=== PATIENT | male | born 1980 | race American Indian/Alaskan Native ===

== ENCOUNTER 2018-06-03 14:49 | Emergency (ER) | payer OTHER ==
--- NOTE | 2018-06-03 23:34 | Emergency Department Report ---
ED Male HPI - General Chief complaint: Urogenital-Male Stated complaint: HAVING A DISCHARGE Time Seen by Provider: 06/03/18 23:26 Source: patient Mode of arrival: Ambulatory Limitations: No Limitations - History of Present Illness Initial comments: 38-year-old female states he's having discharge from his penis. Patient reports that this is been going on for 1 day. He admits to burning when he voids. Denies any nausea vomiting no abdominal pain no fever no chills. He is sexually active with women unprotected 2 partners in the last 6 months. Patient has a past medical history diabetes hypertension. MD Complaint: penile discharge -: days(s) (1) Location: penis Radiation: none Severity: mild Quality: burning Consistency: intermittent Worsens with: urination discharge - Related Data Sexually active: Yes (women 2 partners and unprotected last 6 months) Allergies Allergy/AdvReac Type Severity Reaction Status Date / Time No Known Allergies Allergy Unverified 06/03/18 15:05 ED Review of Systems ROS: Stated complaint: HAVING A DISCHARGE Other details as noted in HPI Genitourinary: dysuria, discharge ED Past Medical Hx - Past Medical History Previous Medical History?: Yes Hx Diabetes: Yes - Surgical History Past Surgical History?: No - Social History Smoking Status: Current Every Day Smoker Substance Use Type: None ED Physical Exam - General Limitations: No Limitations - exam: Present: circumcision. Absent: testicular tenderness, urethral discharge, scrotal swelling External exam: Present: normal external exam - Neurological Exam Neurological exam: Present: alert, oriented X3 - Psychiatric Psychiatric exam: Present: normal affect, normal mood - Skin Skin exam: Present: warm, dry, intact, normal color. Absent: rash ED Course Vital Signs 06/03/18 15:03 Temperature 98.3 F Pulse Rate 79 Respiratory 16 Rate Blood Pressure 164/100 O2 Sat by Pulse 98 Oximetry ED Medical Decision Making - Medical Decision Making Patient has been evaluated by this provider fast track. Gonorrhea and Chlamydia cultures been sent out Urinalysis ordered Ceftriaxone 250 mg IM, azithromycin 1000 mg by mouth Discussed patient that he is putting himself at risk for not being protected during intercourse. Patient urinalysis showed greater than 500 of glucose. [id number] testing for blood sugar shows it was 384. Patient is currently taking metformin and Lantus 20 units daily at bedtime. Patient has not taken his Lantus for tonight. Patient denies any signs or symptoms of high hyperglycemia no increased urination no increased thirsty. Instructed patient to go home and his metformin and his Lantus as prescribed. Discussed with patient to recheck his blood sugar in the morning if it elevated to call his primary care provider. Patient verbalizes understanding Critical care attestation.: If time is entered above; I have spent that time in minutes in the direct care of this critically ill patient, excluding procedure time. ED Disposition Clinical Impression: Concern about STD in male without diagnosis, Abnormal penile discharge Disposition: DC-01 TO HOME OR SELFCARE Is pt being admited?: No Does the pt Need Aspirin: No Condition: Stable Instructions: Sexually Transmitted Diseases (ED), Safe Sex (ED) Additional Instructions: Please inform your partners that you've been treated for STDs I recommend following up with the health department to have full STD workup which will include HIV HSV syphilis hepatitis B hepatitis C. These recheck her blood sugar in the morning after taking your prescribed anti-glycemic medication. If it's still elevated please contact your primary care provider. Referrals: PRIMARY CARE, [Primary Care Provider] - 3-5 Days [facility] [Outside] - 3-5 Days [facility] [Outside] - 3-5 Days [facility] [Outside] - 3-5 Days [facility] [Outside] - 3-5 Days Forms: Work/School Release Form(ED)
[2018-06-03] MEDS ORDERED: ROCEPHIN IM ONE (23:35)
[2018-06-03] MEDS ORDERED: ZITHROMAX PO ONE (23:35)
[2018-06-03] MEDS ORDERED: XYLOCAINE 1% MPF 5 mL INFILTRATI ONE (23:35)
[2018-06-04 00:24] LABS: Bilirubin,Urine NEG (Negative); Blood,Urine NEG (Negative); Color,Urine Yellow (Yellow); Mucus,Urine FEW /HPF; Protein,Urine <15 mg/dL mg/dL (Negative); Urobilinogen,Urine < 2.0 mg/dL (<2.0)
[2018-06-04 02:41] VITALS: BP 134/76
== END 2018-06-04 01:45 | disposition home or self-care (01) ==
LOC: ED 14:49
DX: R36.9 Urethral discharge, unspecified (principal); E11.9 Type 2 diabetes mellitus without complications; F17.200 Nicotine dependence, unspecified, uncomplicated
CPT/HCPCS: 81001; 82962; 87591; 96372; 99283; J0696

== ENCOUNTER 2021-08-16 14:20 | Emergency (ER) | payer OTHER ==
[2021-08-16 14:54] VITALS: BP 134/78
[2021-08-16] MEDS ORDERED: LIDOCAINE-MPF (1%) 10 MG/1 ML VIAL 5 ML INFILTRATI ONE (15:10)
--- NOTE | 2021-08-16 15:15 | Emergency Department Report ---
ED Male HPI - General Chief complaint: Urogenital-Male Stated complaint: PENILE DISCHARGE Time Seen by Provider: 08/16/21 15:06 Source: patient Mode of arrival: Ambulatory Limitations: No Limitations - History of Present Illness Initial comments: Patient is a 41-year-old male presents emergency room with complaints of clear penile discharge that began 2 days ago. He has associated dysuria. He states he was sexually active with a new sexual partner and did not use protection. He denies any fever, nausea, vomiting, diarrhea, abdominal pain, pain or swelling in the testicles, urinary retention, hematuria. Past medical history of diabetes. No allergies to medications. He states he is concerned for STDs. - Related Data Previous Rx's Medication Instructions Recorded Last Taken Type Doxycycline Hyclate [Doxycycline 100 mg PO BID 7 Days #14 tab 08/16/21 Unknown Rx Hyclate TAB] Allergies Allergy/AdvReac Type Severity Reaction Status Date / Time No Known Allergies Allergy Verified 08/16/21 14:55 ED Review of Systems ROS: Stated complaint: PENILE DISCHARGE Other details as noted in HPI Comment: All other systems reviewed and negative ED Past Medical Hx - Past Medical History Previous Medical History?: Yes Hx Diabetes: Yes - Social History Smoking Status: Never Smoker - Medications Home Medications: Home Medications Medication Instructions Recorded Confirmed Last Taken Type Doxycycline Hyclate [Doxycycline 100 mg PO BID 7 Days #14 tab 08/16/21 Unknown Rx Hyclate TAB] ED Physical Exam - General Limitations: No Limitations General appearance: alert, in no apparent distress - Head Head exam: Present: atraumatic, normocephalic - Eye Eye exam: Present: normal appearance - ENT ENT exam: Present: mucous membranes moist - Respiratory Respiratory exam: Absent: respiratory distress, accessory muscle use - GI/Abdominal GI/Abdominal exam: Present: soft. Absent: distended, tenderness, guarding, rebound, rigid - Neurological Exam Neurological exam: Present: alert, oriented X3 - Psychiatric Psychiatric exam: Present: normal affect, normal mood - Skin Skin exam: Present: warm, dry, intact ED Course Vital Signs 08/16/21 14:54 Temperature 98.6 F Pulse Rate 84 Respiratory 16 Rate Blood Pressure 134/78 [Left] O2 Sat by Pulse 97 Oximetry ED Medical Decision Making - Medical Decision Making Patient is a 41-year-old male presents emergency room with complaints of clear penile discharge that began 2 days ago. He has associated dysuria. He states he was sexually active with a new sexual partner and did not use protection. He denies any fever, nausea, vomiting, diarrhea, abdominal pain, pain or swelling in the testicles, urinary retention, hematuria. Past medical history of diabetes. No allergies to medications. He states he is concerned for STDs. Vitals are normal. Patient symptoms likely consistent with an STD. Patient has no testicular pain and denies any swelling, less likely to have epididymitis, orchitis, torsion. Patient given ceftriaxone while in the emergency department and given prescription for doxycycline. Advised patient Please take medication as prescribed. Please have any partner tested and treated as well. Avoid sexual intercourse. Please follow-up with a clinic or the health department in order to have a full STD panel. Return to emergency room for any new or worsening symptoms. Critical care attestation.: If time is entered above; I have spent that time in minutes in the direct care of this critically ill patient, excluding procedure time. ED Disposition Clinical Impression: Penile discharge, Dysuria, Unprotected sexual intercourse Disposition: 01 HOME / SELF CARE / HOMELESS Is pt being admited?: No Does the pt Need Aspirin: No Condition: Stable Instructions: Safe Sex Additional Instructions: Please take medication as prescribed. Please have any partner tested and treated as well. Avoid sexual intercourse. Please follow-up with a clinic or the health department in order to have a full STD panel. Return to emergency room for any new or worsening symptoms. walk in clinic: [facility] Address: [address] [place] [id number] Prescriptions: Doxycycline Hyclate [Doxycycline Hyclate TAB] 100 mg PO BID 7 Days #14 tab Referrals: [facility] [Outside] - 2-3 Days Time of Disposition: 15:12 Print Language: FRENCH
== END 2021-08-16 15:39 | disposition home or self-care (01) ==
LOC: ED 14:20
DX: N36.9 Urethral disorder, unspecified (principal); R30.0 Dysuria; R36.9 Urethral discharge, unspecified
CPT/HCPCS: 96372; 99282; J0696